=== PATIENT | female | born 1980 | race Caucasian/White ===

== ENCOUNTER 2017-09-07 05:45 | Emergency (ER) | payer BC, OTHER ==
[~2017-09-07] VITALS: Ht 162.6 cm; Wt 131.9 kg
[~2017-09-07 05:45] MED LIST: ASCO-262 PO; CYAN250010 PO; DIPH1TAB45 PO; HYDR-757 PO; HYDR1TAB PO; LOPE2TAB17 PO; LVF500T PO; SULF1TAB38 PO
[2017-09-07] MEDS ORDERED: ONDANSETRON 4 MG/2 ML (SDV) Z0FRAN IVP ONE (06:00)
[2017-09-07] MEDS ORDERED: KETOROLAC 30 MG/ML VIAL IVP ONE (06:00)
[2017-09-07] MEDS ORDERED: fentaNYL INJECTION 100 MCG/2 ML AMP IVP ONE (06:00)
[2017-09-07 06:18] LABS: BASOPHILS % (AUTO) 0 % (0-10); EOSINOPHILS # (AUTO) 0.3 10^3/uL (0.0-0.3); EOSINOPHILS % (AUTO) 2 % (0-10); HEMATOCRIT 35 % (35-52); HEMOGLOBIN 13.3 G/DL (11.5-16.0); LYMPHOCYTES # (AUTO) 2.5 X 10^3 (1.0-4.0); LYMPHOCYTES % (AUTO) 20 % (12-44); MEAN CORPUSCULAR HEMOGLOBIN 31 PG (25-34); MEAN CORPUSCULAR HGB CONC 38 G/DL (32-36); MEAN CORPUSCULAR VOLUME 80 FL (80-99); MEAN PLATELET VOLUME 10.3 FL (7.4-10.4); MONOCYTES # (AUTO) 0.9 X 10^3 (0.0-1.0); MONOCYTES % (AUTO) 7 % (0-12); NEUTROPHILS # (AUTO) 8.9 X 10^3 (1.8-7.8); NEUTROPHILS % (AUTO) 71 % (42-75); PLATELET COUNT 334 10^3/uL (130-400); RED BLOOD COUNT 4.36 10^6/uL (4.35-5.85); RED CELL DISTRIBUTION WIDTH 13.3 % (10.0-14.5); WHITE BLOOD COUNT 12.6 10^3/uL (4.3-11.0)
[2017-09-07] MEDS ORDERED: NS IV 1000 ML 1,000 ML IV ONE (06:25)
[2017-09-07 06:27] LABS: BILIRUBIN,URINE NEGATIVE (NEGATIVE); CLARITY,URINE CLEAR; COLOR,URINE YELLOW; GLUCOSE, URINE (UA) NEGATIVE (NEGATIVE); KETONES,URINE NEGATIVE (NEGATIVE); LEUKOCYTE ESTERASE ,URINE 1+ (NEGATIVE); NITRITE,URINE NEGATIVE (NEGATIVE); PH,URINE 5 (5-9); PROTEIN,URINE 1+ (NEGATIVE); UROBILINOGEN,URINE NORMAL (NORMAL)
--- NOTE | 2017-09-07 06:31 | ED Abdominal Pain ---
General Chief Complaint: Abdominal/GI Problems Stated Complaint: RT SIDE ABD PAIN Nursing Triage Note: c/o R sided abdomen pain with n/v starting 3 hours [employer] Sepsis Screen: No Definite Risk Source of Information: Patient Exam Limitations: No Limitations History of Present Illness Time Seen By Provider: 06:05 Initial Comments Here with report of right-sided abdominal pain that started approximately 3 hours ago. This is associated with nausea but no vomiting. Denies fever or chills. Denies dysuria. Has history of kidney stones with similar presentation although she states this is worse and a little bit different. Denies diarrhea. Timing/Duration: 1-3 Hours Severity/Quality: Moderate, Severe Location: RLQ, Flank Radiation: Back, Groin Activities at Onset: None Modifying Factors: Improves With Other (none) Associated Symptoms: Back Pain, No Fever/Chills, No Shortness of Air Allergies and Home Medications Allergies Coded Allergies: NKANo Known Allergies (Unverified Allergy, Mild, 04/22/09) Home Medications Ascorbate Calcium 500 Mg Tablet, 500 MG PO DAILY, (Reported) Cephalexin 500 Mg Tablet, 500 MG PO BID, #14 Ref 0 Prescribed by: NIGEL FRANCES on 09/07/17756 Cyanocobalamin (Vitamin B-12) 2,500 Mcg Tablet, 2,500 MCG PO DAILY, (Reported) Hydrocodone/Acetaminophen 1 Each Tablet, 1 EACH PO Q6H, #14 Ref 0 Prescribed by: NIGEL FRANCES on 09/07/177 Review of Systems Constitutional: see HPI, No chills, No fever EENTM: No Symptoms Reported Respiratory: No Symptoms Reported Cardiovascular: No Symptoms Reported Gastrointestinal: See HPI, Abdominal Pain, Denies Diarrhea, Nausea, Denies Vomiting Genitourinary: See HPI, Flank Pain, Denies Hematuria Musculoskeletal: see HPI, back pain, No muscle pain Skin: no symptoms reported All Other Systems Reviewed Negative Unless Noted: Yes Past Aokszlk-Smhfuz-Qhpghs Hx Patient Social History Alcohol Use: Denies Use Recreational Drug Use: No Smoking Status: Current Everyday Smoker Type Used: Cigarettes Recent Foreign Travel: No Contact w/Someone Who Travel: No Recent Infectious Disease Expo: No Recent Hopitalizations: No Surgeries History of Surgeries: Yes (KIDNEY STONE REMOVAL) Surgeries: Section, Gallbladder Respiratory History of Respiratory Disorde: No Cardiovascular History of Cardiac Disorders: No Neurological History of Neurological Disord: No Reproductive System Hx Reproductive Disorders: No Genitourinary History of Genitourinary Disor: Yes Genitourinary Disorders: Kidney Stones Gastrointestinal History of Gastrointestinal Di: No Musculoskeletal History of Musculoskeletal Dis: No Endocrine History of Endocrine Disorders: No HEENT History of HEENT Disorders: No Cancer History of Cancer: No Psychosocial History of Psychiatric Problem: No Integumentary History of Skin or Integumenta: No Blood Transfusions History of Blood Disorders: No Reviewed Nursing Assessment Reviewed/Agree w Nursing PMH: Yes Family Medical History Significant Family History: No Pertinent Family Hx Physical Exam Vital Signs VS - Last 72 Hours, by Label 09/07/17 05:55 Temp 98.1 Pulse 80 Resp 18 B/P (MAP) 131/97 (108) Pulse Ox 92 Capillary Refill : Less Than 3 Seconds General Appearance: WD/WN, no apparent distress HEENT: PERRL/EOMI, pharynx normal Neck: full range of motion, supple Respiratory: lungs clear, normal breath sounds Cardiovascular: regular rate, rhythm, no murmur Gastrointestinal: soft, No guarding, No rebound, tenderness (right lower quadrant) Extremities: non-tender, normal inspection Back: normal inspection, CVA tenderness (R), No CVA tenderness (L), No vertebral tenderness Neurologic/Psychiatric: alert, oriented x 3 Skin: normal color, warm/dry Progress/Results/Core Measures Results/Orders Lab Results Laboratory Tests Test 09/07/17 06:05 09/07/17 06:15 Range/Units White Blood Count 12.6 H 4.3-11.0 10^3/uL Red Blood Count 4.36 4.35-5.85 10^6/uL Hemoglobin 13.3 11.5-16.0 G/DL Hematocrit 35 35-52 % Mean Corpuscular Volume 80 80-99 FL Mean Corpuscular Hemoglobin 31 25-34 PG Mean Corpuscular Hemoglobin Concent 38 H 32-36 G/DL Red Cell Distribution Width 13.3 10.0-14.5 % Platelet Count 334 130-400 10^3/uL Mean Platelet Volume 10.3 7.4-10.4 FL Neutrophils (%) (Auto) 71 42-75 % Lymphocytes (%) (Auto) 20 12-44 % Monocytes (%) (Auto) 7 0-12 % Eosinophils (%) (Auto) 2 0-10 % Basophils (%) (Auto) 0 0-10 % Neutrophils # (Auto) 8.9 H 1.8-7.8 X 10^3 Lymphocytes # (Auto) 2.5 1.0-4.0 X 10^3 Monocytes # (Auto) 0.9 0.0-1.0 X 10^3 Eosinophils # (Auto) 0.3 0.0-0.3 10^3/uL Basophils # (Auto) 0.0 0.0-0.1 10^3/uL Sodium Level 140 135-145 MMOL/L Potassium Level 4.0 3.6-5.0 MMOL/L Chloride Level 106 98-107 MMOL/L Carbon Dioxide Level 21 21-32 MMOL/L Anion Gap 13 5-14 MMOL/L Blood Urea Nitrogen 13 7-18 MG/DL Creatinine 0.77 0.60-1.30 MG/DL Estimat Glomerular Filtration Rate > 60 BUN/Creatinine Ratio 17 Glucose Level 124 H 70-105 MG/DL Calcium Level 9.2 8.5-10.1 MG/DL Total Bilirubin 0.4 0.1-1.0 MG/DL Aspartate Amino Transf (AST/SGOT) 17 5-34 U/L Alanine Aminotransferase (ALT/SGPT) 24 0-55 U/L Alkaline Phosphatase 73 40-136 U/L Total Protein 7.7 6.4-8.2 GM/DL Albumin 4.1 3.2-4.5 GM/DL Urine Color YELLOW Urine Clarity CLEAR Urine pH 5 5-9 Urine Specific [place] 1.025 H 1.016-1.022 Urine Protein 1+ H NEGATIVE Urine Glucose (UA) NEGATIVE NEGATIVE Urine Ketones NEGATIVE NEGATIVE Urine Nitrite NEGATIVE NEGATIVE Urine Bilirubin NEGATIVE NEGATIVE Urine Urobilinogen NORMAL NORMAL MG/DL Urine Leukocyte Esterase 1+ H NEGATIVE Urine RBC (Auto) 3+ H NEGATIVE Urine RBC 5-10 H /HPF Urine WBC 0-2 /HPF Urine Squamous Epithelial Cells 5-10 /HPF Urine Crystals NONE /LPF Urine Bacteria TRACE /HPF Urine Casts NONE /LPF Urine Mucus SMALL H /LPF Urine Culture Indicated NO My Orders Orders - NIGEL FRANCES MD Cbc With Automated Diff (09/07/17 06:13) Comprehensive Metabolic Panel (09/07/17 06:13) Ns Iv 1000 Ml (Sodium Chloride 0.9%) (09/07/17 06:25) Ct Abd/Pelvis Wo(Kidney Stone) (09/07/17 06:38) Abdomen/Kub 1view (09/07/17 06:38) Fentanyl Injection (Sublimaze Injection (09/07/17 07:51) Hydrocodone/Apap 7.5/325 Tab (Lortab 7. (09/07/17 07:51) Medications Given in ED Current Medications Medications Dose Ordered Sig/Carlotta Route Start Time Stop Time Status Last Admin Dose Admin Fentanyl Citrate 50 mcg ONCE ONCE IVP 09/07/17 06:00 09/07/17 06:02 DC 09/07/17 06:16 50 MCG Ketorolac Tromethamine 30 mg ONCE ONCE IVP 09/07/17 06:00 09/07/17 06:02 DC 09/07/17 06:16 30 MG Ondansetron HCl 4 mg ONCE ONCE IVP 09/07/17 06:00 09/07/17 06:02 DC 09/07/17 06:16 4 MG Sodium Chloride 1,000 ml @ 0 mls/hr Q0M ONCE IV 09/07/17 06:25 09/07/17 06:26 DC 09/07/17 06:30 0 MLS/HR Vital Signs/I&O Vital Sign - Last 12Hours 09/07/17 05:55 Temp 98.1 Pulse 80 Resp 18 B/P (MAP) 131/97 (108) Pulse Ox 92 Progress Note : Progress Note Seen and evaluated. IV, labs and UA ordered. Normal saline 1 L bolus. Zofran 4 mg IV and Toradol 30 mg IV. Fentanyl 50 g IV ordered. Monitor patient. Pain is improved. 0800: Repeat fentanyl 50 g IV and hydrocodone 7.5 mg by mouth given for returning of pain. Patient does have right distal ureteral stone. We will attempt outpatient therapy. She will need follow-up with urologist due to other stones within the kidney and for this stone. This was discussed with the patient who agree. Copy of chart to Dr. Shipman. Discharged home with return precautions. Patient verbalize understanding instructions and agreement with plan. Diagnostic Imaging Diagonstic Imaging: CT Plain Films/CT/US/NM/MRI: abdomen, pelvis Comments VIA [facility]. [place], [place] NAME: DARCY TURNER Ivon [facility] REC#: [id number] PT STATUS: REG ER : 1980 PHYSICIAN: NIGEL FRANCES MD ADMIT DATE: 09/07/17/ER Draft Date of Exam:09/07/17 CT ABD/PELVIS WO(KIDNEY STONE) PROCEDURE: CT urinary tract, rule out kidney stone. TECHNIQUE: Multiple contiguous axial images were obtained through the abdomen and pelvis without the use of intravenous contrast. INDICATION: Flank pain. FINDINGS: There is distal right ureteral calculus measuring long axis of 5.3 cm found roughly 1 cm proximal to the level of the UVJ. This calculus results in fbio-fr-ynidvepk upstream hydroureteronephrosis. There are additional bilateral intrarenal stones nonobstructing. No left ureteral calculi. There are multiple pelvic phleboliths present. Urinary bladder itself unremarkable. The uterus and adnexa unremarkable. There is no appendicitis or diverticulitis. The remaining abdominopelvic solid and hollow viscera nonacute. IMPRESSION: Bilateral nephrolithiasis. Large distal right ureteral stone results in mmen-jf-wfpfmwbl upstream hydroureteronephrosis. Dictated on workstation # [id number] Dict: 09/07/17 0712 Trans: 09/07/17 0759 [id number] Interpreted by: EZRA CHERRY Electronically signed by: Levi Imaging: Xray Plain Films/CT/US/NM/MRI: abdomen Comments VIA [facility]. [place], [place] NAME: DARCY TURNER [facility] REC#: [id number] PT STATUS: REG ER : 1980 PHYSICIAN: NIGEL FRANCES MD ADMIT DATE: 09/07/17/ER Draft Date of Exam:09/07/17 ABDOMEN/KUB 1VIEW INDICATION: Right flank pain. FINDINGS: There is bilateral nephrolithiasis projecting over the kidneys, upper pole right and mid to lower third left. There are multiple pelvic calcifications, the majority of which are phleboliths. A roughly 4.3 mm stone on the right as the most caudal conspicuous calcification is believed to be the distal ureteral stone present on earlier CT. IMPRESSION: Bilateral nephrolithiasis. The distal right ureteral stone is believed to be visualized as the most caudal right hemipelvic calcification measuring roughly 4.3 mm and likely unchanged from earlier CT. Dictated on workstation # [id number] Dict: 09/07/17 0710 Trans: 09/07/17 0[address] [facility] [id number] Interpreted by: EZRA CHERRY Electronically signed by: Departure Impression Impression: Primary Impression: Right ureteral stone Disposition: HOME, SELF-CARE Condition: Stable Departure-Patient Inst. Decision time for Depature: 07:55 Referrals: LUZ GARCIA DO (PCP/Family) Primary Care Physician Patient Instructions: Kidney Stones (DC) Add. Discharge Instructions: All discharge instructions reviewed with patient and/or family. Voiced understanding. You may take ibuprofen 800 mg every 8 hours as needed for pain. Drink plenty of fluids. Follow-up with Dr. Shipman next week for recheck and further evaluation. You can call today for appointment. He is out of town until Sunday. Take other medications as directed. Return for worse pain, fever, vomiting, weakness, breathing problems or other concerns as needed. Scripts Hydrocodone/Acetaminophen (Hydrocodon-Acetaminoph 7.5-325) 1 Each Tablet 1 EACH PO Q6H, #14 TAB 0 Refills Prov: NIGEL FRANCES MD 09/07/17 Cephalexin (Cephalexin) 500 Mg Tablet 500 MG PO BID, #14 TAB 0 Refills Prov: NIGEL FRANCES MD 09/07/17 Copy Copies To 1: SHAHNAZ SHIPMAN MD, TIMOTHY D MD Sep 07, 2017 06:31
[2017-09-07 06:33] LABS: BACTERIA,URINE TRACE /HPF; WBC,URINE 0-2 /HPF
[2017-09-07 06:49] LABS: ALANINE AMINOTRANSFERASE 24 U/L (0-55); ALBUMIN 4.1 GM/DL (3.2-4.5); ALKALINE PHOSPHATASE 73 U/L (40-136); BILIRUBIN,TOTAL 0.4 MG/DL (0.1-1.0); BUN/CREATININE RATIO 17; CALCIUM 9.2 MG/DL (8.5-10.1); CARBON DIOXIDE 21 MMOL/L (21-32); CHLORIDE 106 MMOL/L (98-107); CREATININE SERUM 0.77 MG/DL (0.60-1.30); GFR ESTIMATED > 60; GLUCOSE 124 MG/DL (70-105); SODIUM 140 MMOL/L (135-145); TOTAL PROTEIN 7.7 GM/DL (6.4-8.2)
[2017-09-07] MEDS ORDERED: fentaNYL INJECTION 100 MCG/2 ML AMP IVP STA (07:51)
[2017-09-07] MEDS ORDERED: HYDROcodone/APAP 7.5 MG/325 MG (LORTAB, LORCET PLUS) TABLET PO STA (07:51)
[2017-09-07] MEDS ORDERED: CEPH500T PO (07:57)
[2017-09-07] MEDS ORDERED: HYDR-3816 PO (07:57)
--- NOTE | 2017-09-07 07:59 | Diagnostic Imaging Report ---
PROCEDURE: CT urinary tract, rule out kidney stone. TECHNIQUE: Multiple contiguous axial images were obtained through the abdomen and pelvis without the use of intravenous contrast. INDICATION: Flank pain. FINDINGS: There is distal right ureteral calculus measuring long axis of 5.3 cm found roughly 1 cm proximal to the level of the UVJ. This calculus results in gjey-gd-zwkcmqzk upstream hydroureteronephrosis. There are additional bilateral intrarenal stones nonobstructing. No left ureteral calculi. There are multiple pelvic phleboliths present. Urinary bladder itself unremarkable. The uterus and adnexa unremarkable. There is no appendicitis or diverticulitis. The remaining abdominopelvic solid and hollow viscera nonacute. IMPRESSION: Bilateral nephrolithiasis. Large distal right ureteral stone results in ydze-ty-dbesqgsp upstream hydroureteronephrosis. Dictated by: Dictated on workstation # [id number]
--- NOTE | 2017-09-07 08:01 | Diagnostic Imaging Report ---
INDICATION: Right flank pain. FINDINGS: There is bilateral nephrolithiasis projecting over the kidneys, upper pole right and mid to lower third left. There are multiple pelvic calcifications, the majority of which are phleboliths. A roughly 4.3 mm stone on the right as the most caudal conspicuous calcification is believed to be the distal ureteral stone present on earlier CT. IMPRESSION: Bilateral nephrolithiasis. The distal right ureteral stone is believed to be visualized as the most caudal right hemipelvic calcification measuring roughly 4.3 mm and likely unchanged from earlier CT. Dictated by: Dictated on workstation # [id number]
[2017-09-07 08:15] VITALS: BP 139/73
--- OUTSIDE RECORDS SUMMARY | 2017-09-07 23:50 | XMS REPORT | Continuity of Care Document ---
Author Author [facility] Organization [facility] Address Unknown Phone Unavailable Allergies Active Description Code Type Severity Reaction Onset Reported/Identified Relationship to Patient Clinical Status Yes NKANo Known Allergies NKA Miscellaneous Allergy Mild N/A 04/22/2009 Medications There is no data. Problems Date Dx Coded Attending Type Code Diagnosis Diagnosed By 05/05/2011 Ot 787.91 10/21/2011 Ot 592.0 10/21/2011 Ot 788.0 10/21/2011 Ot 789.09 11/03/2011 Ot 599.0 11/03/2011 Ot 682.2 11/03/2011 Ot 709.9 06/17/2013 IRIS AMBROSE, ALCIDES Chu Ot 923.20 06/17/2013 IRIS , ALCIDES K Ot 923.9 06/17/2013 IRIS , ALCIDES K Ot 959.2 06/17/2013 IIRS , ALCIDES Chu Ot E000.8 06/17/2013 IRIS AMBROSE, ALCIDES Chu Ot E849.4 06/17/2013 IRIS , ALCIDES K Ot E880.9 10/03/2015 SHARI LEE APRN Ot F17.210 10/03/2015 SHARI LEE APRN Ot S93.402A 10/03/2015 SHARI LEE APRN Ot W10.9XXA 10/03/2015 SHARI LEE APRN Ot Y92.59 10/03/2015 SHARI LEE APRN Ot Y99.0 Procedures There is no data. Results Test Result Range Complete blood count (CBC) with automated white blood cell (WBC) differential - 09/07/17 06:05 Blood leukocytes automated count (number/volume) 12.6 10*3/uL 4.3-11.0 Blood erythrocytes automated count (number/volume) 4.36 10*6/uL 4.35-5.85 Venous blood hemoglobin measurement (mass/volume) 13.3 g/dL 11.5-16.0 Blood hematocrit (volume fraction) 35 % 35-52 Automated erythrocyte mean corpuscular volume 80 [foz_us] 80-99 Automated erythrocyte mean corpuscular hemoglobin (mass per erythrocyte) 31 pg 25-34 Automated erythrocyte mean corpuscular hemoglobin concentration measurement ( mass/volume) 38 g/dL 32-36 Automated erythrocyte distribution width ratio 13.3 % 10.0-14.5 Automated blood platelet count (count/volume) 334 10*3/uL 130-400 Automated blood platelet mean volume measurement 10.3 [foz_us] 7.4-10.4 Automated blood neutrophils/100 leukocytes 71 % 42-75 Automated blood lymphocytes/100 leukocytes 20 % 12-44 Blood monocytes/100 leukocytes 7 % 0-12 Automated blood eosinophils/100 leukocytes 2 % 0-10 Automated blood basophils/100 leukocytes 0 % 0-10 Blood neutrophils automated count (number/volume) 8.9 10*3 1.8-7.8 Blood lymphocytes automated count (number/volume) 2.5 10*3 1.0-4.0 Blood monocytes automated count (number/volume) 0.9 10*3 0.0-1.0 Automated eosinophil count 0.3 10*3/uL 0.0-0.3 Automated blood basophil count (count/volume) 0.0 10*3/uL 0.0-0.1 Comprehensive metabolic panel - 09/07/17 06:05 Serum or plasma sodium measurement (moles/volume) 140 mmol/L 135-145 Serum or plasma potassium measurement (moles/volume) 4.0 mmol/L 3.6-5.0 Serum or plasma chloride measurement (moles/volume) 106 mmol/L 98-107 Carbon dioxide 21 mmol/L 21-32 Serum or plasma anion gap determination (moles/volume) 13 mmol/L 5-14 Serum or plasma urea nitrogen measurement (mass/volume) 13 mg/dL 7-18 Serum or plasma creatinine measurement (mass/volume) 0.77 mg/dL 0.60-1.30 Serum or plasma urea nitrogen/creatinine mass ratio 17 NRG Serum or plasma creatinine measurement with calculation of estimated glomerular filtration rate > NRG Serum or plasma glucose measurement (mass/volume) 124 mg/dL 70-105 Serum or plasma calcium measurement (mass/volume) 9.2 mg/dL 8.5-10.1 Serum or plasma total bilirubin measurement (mass/volume) 0.4 mg/dL 0.1-1.0 Serum or plasma alkaline phosphatase measurement (enzymatic activity/volume) 73 U/L 40-136 Serum or plasma aspartate aminotransferase measurement (enzymatic activity/ volume) 17 U/L 5-34 Serum or plasma alanine aminotransferase measurement (enzymatic activity/volume ) 24 U/L 0-55 Serum or plasma protein measurement (mass/volume) 7.7 g/dL 6.4-8.2 Serum or plasma albumin measurement (mass/volume) 4.1 g/dL 3.2-4.5 Complete urinalysis with reflex to culture - 09/07/17 06:15 Urine color determination YELLOW NRG Urine clarity determination CLEAR NRG Urine pH measurement by test strip 5 5-9 Specific gravity of urine by test strip 1.025 1.016- 1.022 Urine protein assay by test strip, semi-quantitative 1+ NEGATIVE Urine glucose detection by automated test strip NEGATIVE NEGATIVE Erythrocytes detection in urine sediment by light microscopy 3+ NEGATIVE Urine ketones detection by automated test strip NEGATIVE NEGATIVE Urine nitrite detection by test strip NEGATIVE NEGATIVE Urine total bilirubin detection by test strip NEGATIVE NEGATIVE Urine urobilinogen measurement by automated test strip (mass/volume) NORMAL NORMAL Urine leukocyte esterase detection by dipstick 1+ NEGATIVE Automated urine sediment erythrocyte count by microscopy (number/high power field) [HPF] NRG Automated urine sediment leukocyte count by microscopy (number/high power field ) [HPF] NRG Bacteria detection in urine sediment by light microscopy TRACE NRG Squamous epithelial cells detection in urine sediment by light microscopy 5-10 NRG Crystals detection in urine sediment by light microscopy NONE NRG Casts detection in urine sediment by light microscopy NONE NRG Mucus detection in urine sediment by light microscopy SMALL NRG Complete urinalysis with reflex to culture NO NRG Encounters ACCT No. Visit Date/Time Discharge Status Pt. Type Provider Facility Loc./Unit Complaint [id number] 10/03/2015 09:56:00 10/03/2015 11:48:00 DIS Emergency SHARI LEE APRN [facility] ER [id number] 05/07/2015 18:12:00 05/07/2015 23:59:59 CLS Outpatient COLTHARP ROSCOE AMBROSE [facility] QUICK [id number] 06/17/2013 08:44:00 06/17/2013 10:41:00 DIS Emergency ALCIDES SIMMONS DO [facility] [id number] 09/07/2017 06:23:00 Document Registration [id number] 11/03/2011 16:02:00 Document Registration [id number] 10/20/2011 20:26:00 Document Registration [id number] 05/05/2011 19:59:00 Document Registration
== END 2017-09-07 08:15 | disposition home or self-care (01) ==
LOC: EDUNIT# 05:45 → ER 05:47
DX: N20.1 Calculus of ureter (principal); Z87.59 Personal history of other complications of pregnancy, childbirth and the puerperium
CPT/HCPCS: 36415; 74018; 74176; 80053; 81000; 84703; 85025

== ENCOUNTER 2017-09-11 15:44 | Outpatient (CLI) | payer BC ==
[~2017-09-11] VITALS: Ht 162.6 cm; Wt 131.9 kg
== END 2017-09-11 16:04 ==
LOC: PREOP 15:44
PROVIDERS: ATTEND Urology
DX: Z01.818 Encounter for other preprocedural examination (principal); N20.0 Calculus of kidney; N20.1 Calculus of ureter

== ENCOUNTER → 2017-09-11 | Outpatient (CLI) | payer BC ==
[~2017-09-11] MED LIST changes: +CEPH500T PO; +HYDR-3816 PO
--- NOTE | 2017-09-11 13:58 | Diagnostic Imaging Report ---
INDICATION: Nephrolithiasis. FINDINGS: There are some tiny punctate calcifications projection over the left kidney. There is a 4 mm stone projecting over the upper pole of the right kidney. The gallbladder is surgically absent. There are no appreciable calculi in the ureteral distribution. There are several phleboliths in the pelvis. These pelvic phleboliths are unchanged from 09/07/2017. IMPRESSION: Bilateral nephrolithiasis. Dictated by: Dictated on workstation # [id number]
== END ==
LOC: RAD 13:10
PROVIDERS: ATTEND Urology
DX: N20.0 Calculus of kidney (principal)
CPT/HCPCS: 74018

== ENCOUNTER 2017-09-12 06:32 | Day surgery (SDC) | payer BC ==
[~2017-09-12] VITALS: Ht 162.6 cm; Wt 131.9 kg
[2017-09-12 06:40] VITALS: BP 135/77
--- NOTE | 2017-09-12 07:05 | Progress Note-Pre Operative ---
Pre-Operative Progress Note H&P Reviewed The H&P was reviewed, patient examined and no changes noted. Date Seen by Provider: Sep 12, 2017 Time Seen by Provider: 07:05 Date H&P Reviewed: Sep 12, 2017 Time H&P Reviewed: 07:05 Pre-Operative Diagnosis: RT DISTAL URETERAL STONE SHAHNAZ SHIPMAN MD Sep 12, 2017 7:05 am
--- NOTE | 2017-09-12 07:06 | Progress Note-Post Operative ---
Post-Operative Progess Note Surgeon (s)/Virologist (s) Surgeon SHAHNAZ SHIPMAN MD Virologist: N/A Pre-Operative Diagnosis RT DISTAL URETERAL STONE Post-Operative Diagnosis SAME Procedure & Operative Findings Date of Procedure 09/12/17 Procedure Performed/Findings RT URETEROSCOPY WITH STONE LITHOTRIPSY Anesthesia Type GENERAL Estimated Blood Loss Estimated blood loss (mL): N/A Specimens/Packing Specimens Removed N/A Packing: N/A SHAHNAZ SHIPMAN MD Sep 12, 2017 7:06 am
[2017-09-12] MEDS ORDERED: ONDANSETRON 4 MG/2 ML (SDV) Z0FRAN ONE (07:07)
[2017-09-12] MEDS ORDERED: fentaNYL INJECTION 100 MCG/2 ML AMP ONE (07:07)
[2017-09-12] MEDS ORDERED: MIDAZOLAM 2 MG/2 ML (VERSED) VIAL ONE (07:07)
[2017-09-12] MEDS ORDERED: LIDOCAINE PF 2% 5 ML (XYLOCAINE) VIAL ONE (07:07)
[2017-09-12] MEDS ORDERED: proPOfol 200 MG/20 ML (DIPRIVAN) VIAL IV ONE (07:07)
[2017-09-12] MEDS ORDERED: SEVOFLURANE (ULTANE) 15 ML INHAL SOLN ONE (07:07)
[2017-09-12] MEDS ORDERED: DEXAMETHASONE 10 MG/ML (DECADRON) 1 ML VIAL ONE (07:07)
[2017-09-12] MEDS ORDERED: cefTRIAXone 1 GM/NS 50 ML IVPB IV ONE ×2 (07:15)
[2017-09-12] MEDS ORDERED: cefTRIAXone INJECTION 1,000 MG in NS (IVPB) 50 ML IV ONE (07:45)
[2017-09-12 07:46] LABS: BASOPHILS % (AUTO) 0 % (0-10); EOSINOPHILS # (AUTO) 0.3 10^3/uL (0.0-0.3); EOSINOPHILS % (AUTO) 3 % (0-10); HEMATOCRIT 38 % (35-52); HEMOGLOBIN 12.9 G/DL (11.5-16.0); LYMPHOCYTES # (AUTO) 2.8 X 10^3 (1.0-4.0); LYMPHOCYTES % (AUTO) 30 % (12-44); MEAN CORPUSCULAR HEMOGLOBIN 31 PG (25-34); MEAN CORPUSCULAR HGB CONC 34 G/DL (32-36); MEAN CORPUSCULAR VOLUME 91 FL (80-99); MEAN PLATELET VOLUME 10.7 FL (7.4-10.4); MONOCYTES # (AUTO) 0.8 X 10^3 (0.0-1.0); MONOCYTES % (AUTO) 9 % (0-12); NEUTROPHILS # (AUTO) 5.3 X 10^3 (1.8-7.8); NEUTROPHILS % (AUTO) 58 % (42-75); PLATELET COUNT 274 10^3/uL (130-400); RED BLOOD COUNT 4.17 10^6/uL (4.35-5.85); RED CELL DISTRIBUTION WIDTH 13.4 % (10.0-14.5); WHITE BLOOD COUNT 9.3 10^3/uL (4.3-11.0)
[2017-09-12] MEDS ORDERED: FAMOTIDINE 20MG/2ML IV (PEPCID) ONE (07:58)
[2017-09-12 08:03] LABS: BUN/CREATININE RATIO 17; CALCIUM 8.7 MG/DL (8.5-10.1); CARBON DIOXIDE 24 MMOL/L (21-32); CHLORIDE 108 MMOL/L (98-107); CREATININE SERUM 0.69 MG/DL (0.60-1.30); GFR ESTIMATED > 60; GLUCOSE 106 MG/DL (70-105); PHOSPHORUS 2.8 MG/DL (2.3-4.7); POTASSIUM 3.8 MMOL/L (3.6-5.0); SODIUM 141 MMOL/L (135-145); URIC ACID 4.8 MG/DL (2.6-7.2)
--- NOTE | 2017-09-12 08:34 | Discharge Inst-Urology ---
Discharge Inst-Urology Discharge Medications New, Converted, or Re-newed RX: RX on Chart Patient Instructions/Follow Up Plan Please make appointment to been seen in office in 2 weeks. Increase oral fluids for 48 hours and then as needed. Diet and Activity as tolerated. If questions or concerns contact your physician Or seek help at emergency department. SHAHNAZ SHIPMAN MD Sep 12, 2017 8:34 am
[2017-09-12] MEDS ORDERED: morphine INJ 10 MG/ML 1ML (SYR OR VIAL) IVP PRN (08:45)
[2017-09-12] MEDS ORDERED: ONDANSETRON 4 MG/2 ML (SDV) Z0FRAN IVP PRN (08:45)
[2017-09-12 09:20] VITALS: BP 105/52
[2017-09-12 09:21] VITALS: BP 105/52
--- NOTE | 2017-09-12 09:38 | Diagnostic Imaging Report ---
INDICATION: Pre-ESWL. FINDINGS: There is a mildly elevated colonic fecal load limiting the exam sensitivity. The bilateral renal calculi show no change. Pelvic calcifications predominantly, if not exclusively, are phleboliths and unchanged. The majority shows central lucencies. IMPRESSION: Bilateral nephrolithiasis and pelvic calcifications, unchanged. Dictated by: Dictated on workstation # [id number]
[2017-09-12 09:50] VITALS: BP 103/65
[2017-09-12 10:20] VITALS: BP 100/65
--- NOTE | 2017-09-12 10:50 | Diagnostic Imaging Report ---
EXAMINATION: Fluoroscopy. INDICATION: Lithotripsy. FINDINGS: Fluoroscopic assistance was provided for Dr. Lucas during his lithotripsy and right cystography procedure. 11.7 seconds of fluoroscopy time was utilized. There were no images obtained. IMPRESSION: Fluoroscopic assistance was provided for Dr. Lucas. Dictated by: Dictated on workstation # [id number]
--- NOTE | 2017-09-12 18:54 | OPERATIVE REPORT ---
DATE OF SERVICE: 09/12/2017 PREOPERATIVE DIAGNOSIS: Right distal ureteral stone. POSTOPERATIVE DIAGNOSES: Right distal ureteral stone and vaginal prolapse. OPERATION PERFORMED: Right ureteroscopy with stone lithotripsy. SURGEON: Vikas Shipman M.D. ANESTHESIA: General. COMPLICATIONS: None. PROCEDURE: Under satisfactory general anesthesia, with the patient in lithotomy position, genitalia were prepped and draped in the usual sterile fashion. Noted was a 2 to 3+ cystocele and 1+ rectocele. Cystoscope was introduced under direct vision. The bladder was essentially normal. The ureteric orifices were normal in shape, size, and configuration with clear efflux, sluggish on the right side. Using the foroblique lens, I dilated the right ureteral orifice intramural portion to the level of the stone to accommodate a 6.9-Monegasque semi-rigid ureteroscope. The stone was seen impacted in the ureter. It was completely broken up with lithoclast and released from the ureteral wall into very small fragments, which flew into the bladder. I went beyond the stone area to the mid ureter. There was no further stone, went back up and down and no significant fragments whatsoever. I removed the ureteroscope, reinserted the cystoscope to empty the bladder. The patient tolerated the procedure and anesthesia well and was sent to recovery room in stable condition. PLAN: We have initiated the blood workup at her preop and then later on we will do the stone risk profile when we see her back at the office in 2 weeks. Job ID: [id number] DocumentID: [id number] Dictated Date: 09/12/2017 08:36:33 Mixing Plant Dumper Date: 09/12/2017 15:30:03 Dictated By: VIKAS SHIPMAN MD
--- OUTSIDE RECORDS SUMMARY | 2017-09-13 18:01 | XMS REPORT | Continuity of Care Document ---
Author Author [facility] Organization [facility] Address Unknown Phone Unavailable Allergies Active Description Code Type Severity Reaction Onset Reported/Identified Relationship to Patient Clinical Status Yes NKANo Known Allergies NKA Miscellaneous Allergy Mild N/A 04/22/2009 Yes No Known Drug Allergies [id number] Drug Allergy Unknown N/A 09/11/2017 Medications There is no data. Problems Date Dx Coded Attending Type Code Diagnosis Diagnosed By 05/05/2011 Ot 787.91 10/21/2011 Ot 592.0 10/21/2011 Ot 788.0 10/21/2011 Ot 789.09 11/03/2011 Ot 599.0 11/03/2011 Ot 682.2 11/03/2011 Ot 709.9 06/17/2013 IRIS , ALCIDES K Ot 923.20 06/17/2013 IRIS DO, ALCIDES K Ot 923.9 06/17/2013 IRIS DO, ALCIDES K Ot 959.2 06/17/2013 IRIS AMBROSE, ALCIDES K Ot E000.8 06/17/2013 IRIS DO, ALCIDES K Ot E849.4 06/17/2013 IRIS AMBROSE, ALCIDES K Ot E880.9 10/03/2015 SHARI LEE APRN Ot F17.210 NICOTINE DEPENDENCE, CIGARETTES, UNCOMPL 10/03/2015 SHARI LEE APRN Ot S93.402A SPRAIN OF UNSPECIFIED LIGAMENT OF LEFT A 10/03/2015 SHARI LEE APRN Ot W10.9XXA FALL (ON) (FROM) UNSPECIFIED STAIRS AND 10/03/2015 SHARI LEE APRN Ot Y92.[address] 10/03/2015 SHARI LEE APRN Ot Y99.0 CIVILIAN ACTIVITY DONE FOR INCOME OR PAY 09/07/2017 YVROSE LU, NIGEL Su Ot N20.1 CALCULUS OF URETER 09/07/2017 NIGEL FRANCES MD, Ot R10.31 RIGHT LOWER QUADRANT PAIN 09/07/2017 NIGEL FRANCES MD, Ot Z87.59 PERSONAL HISTORY OF COMP OF PREG, CHLDBR 09/10/2017 NIGEL FRANCES MD, Ot N20.1 CALCULUS OF URETER 09/10/2017 NIGEL FRANCES MD, Ot R10.31 RIGHT LOWER QUADRANT PAIN 09/10/2017 NIGEL FRANCES MD, Ot Z87.59 PERSONAL HISTORY OF COMP OF PREG, CHLDBR Procedures There is no data. Results Test [...] urinalysis with reflex to culture NO NRG Urine beta human chorionic gonadotropin (hCG) measurement - 09/12/17 06:55 Urine beta human chorionic gonadotropin (hCG) measurement NEGATIVE NEGATIVE Methicillin resistant Staphylococcus aureus (MRSA) screening culture - 07:00 Methicillin resistant Staphylococcus aureus (MRSA) screening culture NEG NRG Complete blood count (CBC) with automated white blood cell (WBC) differential - 09/12/17 07:35 Blood leukocytes automated count (number/volume) 9.3 10*3/uL 4.3-11.0 Blood erythrocytes automated count (number/volume) 4.17 10*6/uL 4.35-5.85 Venous blood hemoglobin measurement (mass/volume) 12.9 g/dL 11.5-16.0 Blood hematocrit (volume fraction) 38 % 35-52 Automated erythrocyte mean corpuscular volume 91 [foz_us] 80-99 Automated erythrocyte mean corpuscular hemoglobin (mass per erythrocyte) 31 pg 25-34 Automated erythrocyte mean corpuscular hemoglobin concentration measurement ( mass/volume) 34 g/dL 32-36 Automated erythrocyte distribution width ratio 13.4 % 10.0-14.5 Automated blood platelet count (count/volume) 274 10*3/uL 130-400 Automated blood platelet mean volume measurement 10.7 [foz_us] 7.4-10.4 Automated blood neutrophils/100 leukocytes 58 % 42-75 Automated blood lymphocytes/100 leukocytes 30 % 12-44 Blood monocytes/100 leukocytes 9 % 0-12 Automated blood eosinophils/100 leukocytes 3 % 0-10 Automated blood basophils/100 leukocytes 0 % 0-10 Blood neutrophils automated count (number/volume) 5.3 10*3 1.8-7.8 Blood lymphocytes automated count (number/volume) 2.8 10*3 1.0-4.0 Blood monocytes automated count (number/volume) 0.8 10*3 0.0-1.0 Automated eosinophil count 0.3 10*3/uL 0.0-0.3 Automated blood basophil count (count/volume) 0.0 10*3/uL 0.0-0.1 Whole blood basic metabolic panel - 09/12/17 07:35 Serum or plasma sodium measurement (moles/volume) 141 mmol/L 135-145 Serum or plasma potassium measurement (moles/volume) 3.8 mmol/L 3.6-5.0 Serum or plasma chloride measurement (moles/volume) 108 mmol/L 98-107 Carbon dioxide 24 mmol/L 21-32 Serum or plasma anion gap determination (moles/volume) 9 mmol/L 5-14 Serum or plasma urea nitrogen measurement (mass/volume) 12 mg/dL 7-18 Serum or plasma creatinine measurement (mass/volume) 0.69 mg/dL 0.60-1.30 Serum or plasma urea nitrogen/creatinine mass ratio 17 NRG Serum or plasma creatinine measurement with calculation of estimated glomerular filtration rate > NRG Serum or plasma glucose measurement (mass/volume) 106 mg/dL 70-105 Serum or plasma calcium measurement (mass/volume) 8.7 mg/dL 8.5-10.1 Serum or plasma uric acid measurement (mass/volume) - 09/12/17 07:35 Serum or plasma uric acid measurement (mass/volume) 4.8 mg/dL 2.6-7.2 Serum or plasma phosphate measurement (mass/volume) - 09/12/17 07:35 Serum or plasma phosphate measurement (mass/volume) 2.8 mg/dL 2.3-4.7 Serum or plasma intact pararthyroid hormone measurement (mass/volume) - 07:35 Serum or plasma intact parathyroid hormone measurement (mass/volume) 90.0 pg/mL 10.0-65.0 Bio-intact parathyroid hormone (PTH) measurement with calcium 8.9 % 8.5-10.5 Encounters ACCT No. Visit Date/Time Discharge Status Pt. Type Provider Facility Loc./Unit Complaint [id number] 09/12/2017 06:32:00 09/12/2017 10:30:00 DIS Outpatient SHAHNAZ SHIPMAN MD [facility] RIGHT URETERAL STONE AND BILAT RENAL STONE [id number] 09/11/2017 15:44:00 09/11/2017 16:04:00 DIS Outpatient RAMONITA LU, SHAHNAZ Richey [facility] PREOP RT URETERAL STONE [id number] 09/07/2017 05:47:00 09/07/2017 08:15:00 DIS Emergency NIGEL FRANCES MD [facility] ER RT SIDE ABD PAIN [id number] 10/03/2015 09:56:00 10/03/2015 11:48:00 DIS Emergency SHARI LEE APRN [facility] ER FALL/L ANKLE INJ [id number] 05/07/2015 18:12:00 05/07/2015 23:59:59 CLS Outpatient ROSCOE STEPHENSON DO [facility] QUICK [id number] 06/17/2013 08:44:00 06/17/2013 10:41:00 DIS Emergency ALCIDES SIMMONS DO [facility] ER [id number] 09/11/2017 21:33:00 Document Registration [id number] 11/03/2011 16:02:00 Document Registration [id number] 10/20/2011 20:26:00 Document Registration [id number] 05/05/2011 19:59:00 Document Registration
== END 2017-09-12 10:30 | disposition home or self-care (01) ==
LOC: SDC 06:32
PROVIDERS: ATTEND Urology
DX: N20.1 Calculus of ureter (principal); E66.01 Morbid (severe) obesity due to excess calories; G47.33 Obstructive sleep apnea (adult) (pediatric); F17.210 Nicotine dependence, cigarettes, uncomplicated; Z68.42 Body mass index [BMI] 45.0-49.9, adult
CPT/HCPCS: 36415; 74018; 80048; 83970; 84100; 84550; 84703; 85025; 87081

== ENCOUNTER → 2017-09-27 | Outpatient (CLI) | payer BC | LOC: LAB 14:25 | PROVIDERS: ATTEND Urology | DX: N20.0 Calculus of kidney (principal) ==

== ENCOUNTER → 2017-10-26 | Outpatient (CLI) | payer BC ==
[~2017-10-26] MED LIST changes: +HYDR-34 PO; -HYDR-3816 PO
--- NOTE | 2017-10-26 17:45 | Diagnostic Imaging Report ---
Procedure: Parathyroid planar w/SPECT CT. Technique: Planar scintigraphic imaging of the head and neck was performed after the intravenous administration of 20.2 mCi of technetium 99m sestamibi. This was followed by SPECT CT imaging of the head and neck and upper chest. Indication: Hyperparathyroidism. Comparison: None available. Findings: Planar scintigraphic imaging demonstrates early normal homogeneous radiotracer activity throughout the thyroid. Delayed phase images demonstrate washout of radiotracer from the thyroid and no residual foci of radiotracer activity to indicate hyperfunctioning parathyroid adenoma. SPECT imaging confirms that there are no abnormal foci of radiotracer activity on delayed phase imaging. Physiologic activity within the salivary glands is noted. Impression: 1. No hyperfunctioning parathyroid adenoma. 2. Please note that diffuse parathyroid hyperplasia could still be present. Dictated by: Dictated on workstation # [id number]
== END ==
LOC: CARD 12:13
PROVIDERS: ATTEND Urology
DX: E21.3 Hyperparathyroidism, unspecified (principal)
CPT/HCPCS: 78072